=== PATIENT | male | born 1980 | race Caucasian/White ===

== ENCOUNTER 2018-05-11 20:59 | Emergency (ER) | payer OTHER ==
[2018-05-11] MEDS ORDERED: ACETAMINOPHEN EXTRA STRENGTH 500 MG TABLET ONE (21:10)
[2018-05-11] MEDS ORDERED: METOCLOPRAMIDE 10 MG/2 ML VIAL ONE ×2 (22:28→22:39)
[2018-05-11] MEDS ORDERED: SODIUM CHLORIDE 0.9% 1000ML 1,000 ML IV ONE (22:28)
== END 2018-05-11 23:52 | disposition home or self-care (01) ==
LOC: EDH 20:59
DX: R51 Headache (principal); R20.2 Paresthesia of skin; Z88.2 Allergy status to sulfonamides
CPT/HCPCS: 70450; 82948; 96374; 99284; J2765 ×2; J7030